=== PATIENT | male | born 1995 | race African-American/Black ===

== ENCOUNTER 2021-12-17 20:43 | Emergency (ER) | payer BC ==
[~2021-12-17] VITALS: Ht 177.8 cm; Wt 95.3 kg
[2021-12-17 21:25] LABS: BILIRUBIN Negative (Negative); BLOOD Negative (Negative); CLARITY Clear (Clear); COLOR Yellow (Yellow); GLUCOSE Negative (Negative); KETONE 1+ (Negative); LEUKO ESTERASE 2+ (Negative); NITRITE Negative (Negative); PH 7.5 (4.5-8.0); SPECIFIC GRAVITY >= 1.030 (1.001-1.030)
[2021-12-17 22:05] LABS: BACTERIA 1+; MUCOUS 1+; WBC 21-30 wbc/hpf (0-5)
[2021-12-17] MEDS ORDERED: ZITHROMAX250 MG PO (22:42)
== END 2021-12-17 22:48 | disposition home or self-care (01) ==
LOC: ED 20:43
PROVIDERS: Emergency Medicine
DX: Z20.2 Contact with and (suspected) exposure to infections with a predominantly sexual mode of transmission (principal); N39.0 Urinary tract infection, site not specified; F17.200 Nicotine dependence, unspecified, uncomplicated

== ENCOUNTER 2022-08-03 13:28 | Emergency (ER) | payer BC ==
[~2022-08-03] VITALS: Wt 90.7 kg
[~2022-08-03 13:28] MED LIST: ZITHROMAX250 MG PO
[2022-08-03 14:46] LABS: BILIRUBIN Negative (Negative); BLOOD Negative (Negative); CLARITY Clear (Clear); COLOR Yellow (Yellow); GLUCOSE Negative (Negative); KETONE Trace (Negative); LEUKO ESTERASE Negative (Negative); NITRITE Negative (Negative); SPECIFIC GRAVITY >= 1.030 (1.001-1.030); UROBILINOGEN 0.2 E.U./dl (0.0-1.0)
[2022-08-03 15:08] LABS: WBC 0-2 wbc/hpf (0-5)
[2022-08-03 15:09] LABS: BACTERIA TRACE; CALCIUM OXALATE CRYSTALS 1+; MUCOUS 1+
== END 2022-08-03 17:00 | disposition home or self-care (01) ==
LOC: ED 13:28
PROVIDERS: Emergency Medicine
DX: Z20.2 Contact with and (suspected) exposure to infections with a predominantly sexual mode of transmission (principal)